=== PATIENT | female | born 1950 | race Caucasian/White ===

== ENCOUNTER → 2017-05-10 | Outpatient (REF) | payer MEDICARE, OTHER ==
[~2017-05-10] MED LIST: ALLO100T PO; ASPI325T24 PO; CALC1CAP31 PO; CALCTAB68 PO; CORE12.5 PO; CYCL10TA PO; CYMB60CA3 PO; FLAG500T PO; HYDR-3363 PO; LIDO5DIS41 TD; LINZ145C PO; MOTR200T44 PO; NEUR300C PO; OMEP40CA2 PO; SENN8.6C PO; SIMV20TA2 PO; SING10TA32 PO; TORS10TA3 PO; VICO5TAB16 PO; VITA200015 PO; XYZA5TAB2 PO; cipro
== END ==
LOC: M LAB REF 12:43
PROVIDERS: ATTEND Internal Medicine Nephrology
DX: N39.0 Urinary tract infection, site not specified (principal)

== ENCOUNTER → 2018-07-29 | Outpatient (CLI) | payer MEDICARE, OTHER, BC | LOC: M SLEEP 20:00 | DX: G47.33 Obstructive sleep apnea (adult) (pediatric) (principal); R40.0 Somnolence | CPT/HCPCS: 95811 ==

== ENCOUNTER → 2020-09-29 | Outpatient (CLI) | payer MEDICARE, OTHER, BC ==
[~2020-09-29] MED LIST changes: +ASPI-255 PO; -ASPI325T24 PO; +CYCL-707 PO; -CYCL10TA PO; -OMEP40CA2 PO; +OMEP40CA97 PO; -SIMV20TA2 PO; +SIMV20TA22 PO; -VICO5TAB16 PO; +VICO5TAB17 PO
== END ==
LOC: M LABSMTC 18:19
PROVIDERS: ATTEND Pediatrics
DX: Z20.828 Contact with and (suspected) exposure to other viral communicable diseases (principal)

== ENCOUNTER → 2021-04-29 | Outpatient (REF) | payer MEDICARE, OTHER, BC ==
[~2021-04-29] MED LIST changes: +OMEP40CA4 PO; -OMEP40CA97 PO
== END ==
LOC: M LAB REF 17:15
PROVIDERS: ATTEND Internal Medicine Nephrology
DX: E83.42 Hypomagnesemia (principal)

== ENCOUNTER 2022-05-29 12:01 | Inpatient (IN) | payer MEDICARE, OTHER, BC ==
[2022-05-29] MEDS: LIDOCAINE 5% (LIDODERM) PATCH TD SCH (09:00)
[~2022-05-29 12:01] MED LIST changes: -CYMB60CA3 PO; +CYMB60CA4 PO
[2022-05-29 12:41] LABS: BASO % 0.3 % (0.0-1.0); EOS # 0.1 10^3/uL (0.0-0.5); EOS % 0.6 % (0.0-3.0); HEMATOCRIT 36.7 % (36.0-47.0); HEMOGLOBIN 11.6 g/dl (12.0-15.5); LYMPH # 1.2 10^3/uL (1.5-5.0); LYMPH % 13.7 % (24.0-44.0); MEAN CORPUSCULAR HEMOGLOBIN 30.5 pg (27.0-33.0); MEAN CORPUSCULAR HGB CONC 31.6 g/dl (32.0-36.5); MEAN CORPUSCULAR VOLUME 96.6 fl (80.0-96.0); MONO # 0.9 10^3/uL (0.0-0.8); MONO % 9.9 % (2.0-8.0); NEUTROPHILS # 6.4 10^3/uL (1.5-8.5); NEUTROPHILS % 74.9 % (36.0-66.0); PLATELET COUNT, AUTOMATED 226 10^3/uL (150-450); WHITE BLOOD COUNT 8.6 10^3/uL (4.0-10.0)
[2022-05-29 13:25] LABS: CK-MB VALUE MASS 1.2 NG/ML (<3.6); MB/CK RELATIVE INDEX 0.87 (< OR =4)
[2022-05-29 13:32] LABS: CALCIUM LEVEL 9.2 MG/DL (8.8-10.2); CREATININE FOR GFR 1.88 MG/DL (0.55-1.30); FREE T4 1.22 NG/DL (0.76-1.46); GLOMERULAR FILTRATION RATE 27.8 (>39); MAGNESIUM LEVEL 2.1 MG/DL (1.8-2.4); POTASSIUM SERUM 4.4 MEQ/L (3.5-5.1); THYROID STIMULATING HORMONE 1.06 uIU/ML (0.358-3.740)
[2022-05-29 14:18] LABS: RSV AMPLIFICATION NEGATIVE (NEGATIVE)
[2022-05-29 15:23] LABS: MB/CK RELATIVE INDEX 0.74 (< OR =4)
[2022-05-29] MEDS ORDERED: SPIR-10 PO (16:43)
[2022-05-29] MEDS ORDERED: ISOS20TA4 PO (16:43)
[2022-05-29] MEDS ORDERED: ECOT81TA5 PO (16:43)
[2022-05-29] MEDS ORDERED: POTA1TAB24 PO (16:43)
[2022-05-29] MEDS ORDERED: CARV25TA PO (16:43)
[2022-05-29] MEDS ORDERED: HYDR-3713 PO (16:43)
[2022-05-29] MEDS ORDERED: AMIT24CA7 PO (16:43)
[2022-05-29] MEDS ORDERED: BUPR75TA5 PO (16:43)
[2022-05-29] MEDS ORDERED: GABA-283 PO (16:43)
[2022-05-29] MEDS ORDERED: LEVOTAB10 PO (16:43)
[2022-05-29] MEDS ORDERED: DOXY75CA3 PO (16:43)
[2022-05-29] MEDS ORDERED: FARX1TAB3 PO (16:43)
[2022-05-29] MEDS ORDERED: ALLO300T2 PO (16:43)
[2022-05-29] MEDS ORDERED: HOME MED LIST COMPLETE! XX SCH (16:45)
[2022-05-29] MEDS ORDERED: NORCO, ANEXSIA 5/325MG TABLET (HYDROcodone/ACETAMINOPHEN) PO PRN (17:35)
[2022-05-29] MEDS ORDERED: ACETAMINOPHEN 325 MG TAB PO PRN (17:55)
[2022-05-29] MEDS: **NOTE PATIENT COMMENT** MISC XX SCH (21:00)
[2022-05-29 22:38] VITALS: BP 165/76
[2022-05-29] MEDS: OMEPRAZOLE 20MG CAP PO SCH (22:47)
[2022-05-29] MEDS: HEPARIN SOD (PORCINE) 5000UNITS/ML 1ML VIAL/SYRINGE SC SCH (22:47)
[2022-05-29] MEDS: POTASSIUM CHLORIDE 10MEQ SR TABLET PO SCH (22:48)
[2022-05-29] MEDS: GABAPENTIN 400MG CAP PO SCH (22:48)
[2022-05-29] MEDS: MONTELUKAST 10 MG TAB PO SCH (22:48)
[2022-05-29] MEDS: SIMVASTATIN 20 MG TAB PO SCH (22:48)
[2022-05-29] MEDS: CYCLOBENZAPRINE 10MG TABLET PO SCH (22:48)
[2022-05-29] MEDS: DULoxetine 30MG CAPSULE (CYMBALTA) PO SCH (22:49)
[2022-05-29] MEDS: ASPIRIN 81MG ENTERIC TABLET PO SCH (22:49)
[2022-05-29] MEDS: CARVedilol 12.5 MG TAB PO SCH (22:49)
[2022-05-29] MEDS: oxyCODONE 5MG TAB PO PRN (22:58)
[2022-05-30] MEDS: buPROPion 75 MG TAB PO SCH ×3 (00:13→21:45)
[2022-05-30] MEDS: DAPAGLIFLOZIN PROPANEDIOL 10MG TABLET (FARXIGA) PO SCH ×2 (00:13→21:44)
[2022-05-30 04:52] VITALS: BP 143/60
[2022-05-30] MEDS: HEPARIN SOD (PORCINE) 5000UNITS/ML 1ML VIAL/SYRINGE SC SCH ×3 (04:58→21:45)
[2022-05-30] MEDS: oxyCODONE 5MG TAB PO PRN ×2 (04:58→11:46)
[2022-05-30] MEDS: ISOSORBIDE DIN. (ISORDIL) 20 MG TAB PO SCH ×3 (06:16→17:50)
[2022-05-30 06:44] LABS: HEMOGLOBIN 10.7 g/dl (12.0-15.5); MEAN CORPUSCULAR HEMOGLOBIN 29.6 pg (27.0-33.0); MEAN CORPUSCULAR HGB CONC 30.6 g/dl (32.0-36.5); PLATELET COUNT, AUTOMATED 187 10^3/uL (150-450); RED BLOOD COUNT 3.61 10^6/uL (4.00-5.40); WHITE BLOOD COUNT 7.5 10^3/uL (4.0-10.0)
[2022-05-30 07:27] LABS: CALCIUM LEVEL 9.1 MG/DL (8.8-10.2); CREATININE FOR GFR 1.6 MG/DL (0.55-1.30); GLOMERULAR FILTRATION RATE 33.5 (>39); POTASSIUM SERUM 4.2 MEQ/L (3.5-5.1)
[2022-05-30] MEDS: CALCITRIOL 0.25 MCG CAP (S0169) PO SCH (09:17)
[2022-05-30] MEDS: GABAPENTIN 400MG CAP PO SCH ×3 (09:17→21:44)
[2022-05-30] MEDS: OMEPRAZOLE 20MG CAP PO SCH ×2 (09:17→21:45)
[2022-05-30] MEDS: TORSEMIDE 10 MG TABLET PO SCH (09:17)
[2022-05-30] MEDS: CYCLOBENZAPRINE 10MG TABLET PO SCH ×3 (09:18→21:45)
[2022-05-30] MEDS: POTASSIUM CHLORIDE 10MEQ SR TABLET PO SCH ×2 (09:18→21:44)
[2022-05-30] MEDS: allopurinoL 300 MG TAB PO SCH (09:18)
[2022-05-30] MEDS: DULoxetine 30MG CAPSULE (CYMBALTA) PO SCH ×2 (09:19→21:45)
[2022-05-30] MEDS: LIDOCAINE 5% (LIDODERM) PATCH TD SCH (09:19)
[2022-05-30] MEDS: CARVedilol 12.5 MG TAB PO SCH ×2 (09:19→21:47)
[2022-05-30] MEDS: SPIRONOLACTONE 12.5MG PER 1/2 TABLET PO SCH (09:23)
[2022-05-30 12:52] VITALS: BP_SYST 113; BP_SYST 143; BP_SYST 146; BP_DIAS 51; BP_DIAS 69; BP_DIAS 70
[2022-05-30 14:00] VITALS: BP 132/65
[2022-05-30] MEDS ORDERED: LR 500 ML IV SCH (14:00)
[2022-05-30 20:19] VITALS: BP 144/68
[2022-05-30] MEDS: SIMVASTATIN 20 MG TAB PO SCH (21:45)
[2022-05-30] MEDS: MONTELUKAST 10 MG TAB PO SCH (21:45)
[2022-05-30] MEDS: ASPIRIN 81MG ENTERIC TABLET PO SCH (21:45)
[2022-05-30] MEDS: **NOTE PATIENT COMMENT** MISC XX SCH (21:50)
[2022-05-31] MEDS: oxyCODONE 5MG TAB PO PRN ×3 (02:39→22:38)
[2022-05-31 06:02] LABS: HEMATOCRIT 34.5 % (36.0-47.0); HEMOGLOBIN 10.6 g/dl (12.0-15.5); MEAN CORPUSCULAR HEMOGLOBIN 29.5 pg (27.0-33.0); MEAN CORPUSCULAR HGB CONC 30.7 g/dl (32.0-36.5); MEAN CORPUSCULAR VOLUME 96.1 fl (80.0-96.0); PLATELET COUNT, AUTOMATED 207 10^3/uL (150-450); RED BLOOD COUNT 3.59 10^6/uL (4.00-5.40); WHITE BLOOD COUNT 8.8 10^3/uL (4.0-10.0)
[2022-05-31] MEDS: HEPARIN SOD (PORCINE) 5000UNITS/ML 1ML VIAL/SYRINGE SC SCH ×3 (06:16→22:37)
[2022-05-31 06:19] VITALS: BP 136/57
[2022-05-31] MEDS: ISOSORBIDE DIN. (ISORDIL) 20 MG TAB PO SCH ×3 (06:19→17:11)
[2022-05-31 06:36] LABS: CALCIUM LEVEL 9.5 MG/DL (8.8-10.2); CREATININE FOR GFR 1.53 MG/DL (0.55-1.30); GLOMERULAR FILTRATION RATE 35.3 (>39); POTASSIUM SERUM 4.2 MEQ/L (3.5-5.1)
[2022-05-31] MEDS: POTASSIUM CHLORIDE 10MEQ SR TABLET PO SCH ×2 (09:09→22:36)
[2022-05-31] MEDS: CARVedilol 12.5 MG TAB PO SCH ×2 (09:09→22:35)
[2022-05-31] MEDS: buPROPion 75 MG TAB PO SCH ×2 (09:09→22:37)
[2022-05-31] MEDS: GABAPENTIN 400MG CAP PO SCH ×3 (09:09→22:36)
[2022-05-31] MEDS: TORSEMIDE 10 MG TABLET PO SCH (09:09)
[2022-05-31] MEDS: CALCITRIOL 0.25 MCG CAP (S0169) PO SCH (09:10)
[2022-05-31] MEDS: CYCLOBENZAPRINE 10MG TABLET PO SCH ×3 (09:10→22:36)
[2022-05-31] MEDS: OMEPRAZOLE 20MG CAP PO SCH ×2 (09:10→22:36)
[2022-05-31] MEDS: DULoxetine 30MG CAPSULE (CYMBALTA) PO SCH ×2 (09:10→22:35)
[2022-05-31] MEDS: SPIRONOLACTONE 12.5MG PER 1/2 TABLET PO SCH (09:10)
[2022-05-31] MEDS: allopurinoL 300 MG TAB PO SCH (09:10)
[2022-05-31] MEDS: LIDOCAINE 5% (LIDODERM) PATCH TD SCH (09:10)
[2022-05-31 14:00] VITALS: BP 122/57
[2022-05-31 20:00] VITALS: BP 142/63
[2022-05-31] MEDS ORDERED: BISACODYL 5 MG TAB PO PRN (22:35)
[2022-05-31] MEDS: ASPIRIN 81MG ENTERIC TABLET PO SCH (22:36)
[2022-05-31] MEDS: DAPAGLIFLOZIN PROPANEDIOL 10MG TABLET (FARXIGA) PO SCH (22:36)
[2022-05-31] MEDS: MONTELUKAST 10 MG TAB PO SCH (22:37)
[2022-05-31] MEDS: SIMVASTATIN 20 MG TAB PO SCH (22:37)
[2022-05-31] MEDS: DOCUSATE SODIUM 100MG CAPSULE PO SCH (22:41)
[2022-05-31] MEDS: **NOTE PATIENT COMMENT** MISC XX SCH (22:50)
[2022-06-01] MEDS: ISOSORBIDE DIN. (ISORDIL) 20 MG TAB PO SCH ×3 (06:08→16:57)
[2022-06-01] MEDS: HEPARIN SOD (PORCINE) 5000UNITS/ML 1ML VIAL/SYRINGE SC SCH ×3 (06:08→21:15)
[2022-06-01] MEDS: oxyCODONE 5MG TAB PO PRN ×3 (06:09→21:16)
[2022-06-01] MEDS: MIRALAX *UNIT DOSE* 17GM PACKET PO SCH (09:52)
[2022-06-01] MEDS: LIDOCAINE 5% (LIDODERM) PATCH TD SCH (09:53)
[2022-06-01] MEDS: OMEPRAZOLE 20MG CAP PO SCH ×2 (09:53→21:15)
[2022-06-01] MEDS: GABAPENTIN 400MG CAP PO SCH ×3 (09:53→21:15)
[2022-06-01] MEDS: buPROPion 75 MG TAB PO SCH ×2 (09:54→21:15)
[2022-06-01] MEDS: DOCUSATE SODIUM 100MG CAPSULE PO SCH ×2 (09:54→21:13)
[2022-06-01] MEDS: CYCLOBENZAPRINE 10MG TABLET PO SCH ×3 (09:54→21:14)
[2022-06-01] MEDS: allopurinoL 300 MG TAB PO SCH (09:54)
[2022-06-01] MEDS: CALCITRIOL 0.25 MCG CAP (S0169) PO SCH (09:54)
[2022-06-01] MEDS: DULoxetine 30MG CAPSULE (CYMBALTA) PO SCH ×2 (09:54→21:14)
[2022-06-01] MEDS: TORSEMIDE 10 MG TABLET PO SCH (09:54)
[2022-06-01] MEDS: POTASSIUM CHLORIDE 10MEQ SR TABLET PO SCH ×2 (09:54→21:15)
[2022-06-01] MEDS: SPIRONOLACTONE 12.5MG PER 1/2 TABLET PO SCH (09:55)
[2022-06-01] MEDS: CARVedilol 12.5 MG TAB PO SCH ×2 (09:58→21:14)
[2022-06-01 10:00] VITALS: BP 128/60
[2022-06-01 14:00] VITALS: BP 122/60
[2022-06-01 20:59] VITALS: BP 124/62
[2022-06-01] MEDS: ASPIRIN 81MG ENTERIC TABLET PO SCH (21:14)
[2022-06-01] MEDS: DAPAGLIFLOZIN PROPANEDIOL 10MG TABLET (FARXIGA) PO SCH (21:14)
[2022-06-01] MEDS: SIMVASTATIN 20 MG TAB PO SCH (21:15)
[2022-06-01] MEDS: MONTELUKAST 10 MG TAB PO SCH (21:15)
[2022-06-01] MEDS: **NOTE PATIENT COMMENT** MISC XX SCH (21:15)
[2022-06-01] MEDS: CEPACOL LOZENGE PO PRN (22:23)
[2022-06-02 06:00] VITALS: BP 115/48
[2022-06-02 06:06] LABS: HEMATOCRIT 32.5 % (36.0-47.0); HEMOGLOBIN 10.1 g/dl (12.0-15.5); MEAN CORPUSCULAR HEMOGLOBIN 30.4 pg (27.0-33.0); MEAN CORPUSCULAR HGB CONC 31.1 g/dl (32.0-36.5); MEAN CORPUSCULAR VOLUME 97.9 fl (80.0-96.0); PLATELET COUNT, AUTOMATED 201 10^3/uL (150-450); RED BLOOD COUNT 3.32 10^6/uL (4.00-5.40); WHITE BLOOD COUNT 8.8 10^3/uL (4.0-10.0)
[2022-06-02] MEDS: HEPARIN SOD (PORCINE) 5000UNITS/ML 1ML VIAL/SYRINGE SC SCH ×3 (06:19→21:20)
[2022-06-02] MEDS: ISOSORBIDE DIN. (ISORDIL) 20 MG TAB PO SCH ×3 (06:19→18:01)
[2022-06-02] MEDS: oxyCODONE 5MG TAB PO PRN ×3 (06:20→21:22)
[2022-06-02 06:51] LABS: CALCIUM LEVEL 9.5 MG/DL (8.8-10.2); CREATININE FOR GFR 1.63 MG/DL (0.55-1.30); GLOMERULAR FILTRATION RATE 32.8 (>39); POTASSIUM SERUM 4.5 MEQ/L (3.5-5.1)
[2022-06-02] MEDS: DOCUSATE SODIUM 100MG CAPSULE PO SCH ×2 (09:32→21:18)
[2022-06-02] MEDS: OMEPRAZOLE 20MG CAP PO SCH ×2 (09:32→21:19)
[2022-06-02] MEDS: MIRALAX *UNIT DOSE* 17GM PACKET PO SCH (09:32)
[2022-06-02] MEDS: GABAPENTIN 400MG CAP PO SCH ×3 (09:32→21:19)
[2022-06-02] MEDS: DULoxetine 30MG CAPSULE (CYMBALTA) PO SCH ×2 (09:33→21:18)
[2022-06-02] MEDS: TORSEMIDE 10 MG TABLET PO SCH (09:33)
[2022-06-02] MEDS: buPROPion 75 MG TAB PO SCH ×2 (09:33→21:19)
[2022-06-02] MEDS: POTASSIUM CHLORIDE 10MEQ SR TABLET PO SCH ×2 (09:33→21:19)
[2022-06-02] MEDS: CALCITRIOL 0.25 MCG CAP (S0169) PO SCH (09:33)
[2022-06-02] MEDS: CYCLOBENZAPRINE 10MG TABLET PO SCH ×3 (09:33→21:19)
[2022-06-02] MEDS: allopurinoL 300 MG TAB PO SCH (09:34)
[2022-06-02] MEDS: CARVedilol 12.5 MG TAB PO SCH ×2 (09:35→21:18)
[2022-06-02] MEDS: LIDOCAINE 5% (LIDODERM) PATCH TD SCH (09:35)
[2022-06-02] MEDS: SPIRONOLACTONE 12.5MG PER 1/2 TABLET PO SCH (09:39)
[2022-06-02 14:00] VITALS: BP 103/57
[2022-06-02 21:00] VITALS: BP 136/66
[2022-06-02] MEDS: **NOTE PATIENT COMMENT** MISC XX SCH (21:00)
[2022-06-02] MEDS ORDERED: BISACODYL 5 MG TAB PO PRN (21:10)
[2022-06-02] MEDS ORDERED: MOM 30ML SUSPENSION UDC PO PRN (21:15)
[2022-06-02] MEDS: DAPAGLIFLOZIN PROPANEDIOL 10MG TABLET (FARXIGA) PO SCH (21:18)
[2022-06-02] MEDS: ASPIRIN 81MG ENTERIC TABLET PO SCH (21:18)
[2022-06-02] MEDS: SIMVASTATIN 20 MG TAB PO SCH (21:19)
[2022-06-02] MEDS: MONTELUKAST 10 MG TAB PO SCH (21:19)
[2022-06-02] MEDS: CEPACOL LOZENGE PO PRN (21:20)
[2022-06-03 05:38] VITALS: BP 149/69
[2022-06-03 05:59] LABS: HEMATOCRIT 33.9 % (36.0-47.0); HEMOGLOBIN 10.4 g/dl (12.0-15.5); MEAN CORPUSCULAR HEMOGLOBIN 29.6 pg (27.0-33.0); MEAN CORPUSCULAR HGB CONC 30.7 g/dl (32.0-36.5); MEAN CORPUSCULAR VOLUME 96.6 fl (80.0-96.0); PLATELET COUNT, AUTOMATED 218 10^3/uL (150-450); RED BLOOD COUNT 3.51 10^6/uL (4.00-5.40); WHITE BLOOD COUNT 8.9 10^3/uL (4.0-10.0)
[2022-06-03] MEDS: HEPARIN SOD (PORCINE) 5000UNITS/ML 1ML VIAL/SYRINGE SC SCH (06:17)
[2022-06-03] MEDS: ISOSORBIDE DIN. (ISORDIL) 20 MG TAB PO SCH ×2 (06:17→12:37)
[2022-06-03 06:26] LABS: HEMOGLOBIN A1c 5.8 %
[2022-06-03 06:31] LABS: CALCIUM LEVEL 9.7 MG/DL (8.8-10.2); CREATININE FOR GFR 1.77 MG/DL (0.55-1.30); GLOMERULAR FILTRATION RATE 29.9 (>39); POTASSIUM SERUM 4.7 MEQ/L (3.5-5.1); URIC ACID 3.4 MG/DL (2.6-6.0)
[2022-06-03] MEDS ORDERED: COLA100C5 PO (08:48)
[2022-06-03] MEDS ORDERED: MIRA1POW3 PO (08:48)
[2022-06-03] MEDS ORDERED: HYDR-3713 PO ×2 (08:48)
[2022-06-03] MEDS: MIRALAX *UNIT DOSE* 17GM PACKET PO SCH (08:53)
[2022-06-03] MEDS: TORSEMIDE 10 MG TABLET PO SCH (08:54)
[2022-06-03] MEDS: CALCITRIOL 0.25 MCG CAP (S0169) PO SCH (08:54)
[2022-06-03] MEDS: DULoxetine 30MG CAPSULE (CYMBALTA) PO SCH (08:54)
[2022-06-03] MEDS: DOCUSATE SODIUM 100MG CAPSULE PO SCH (08:54)
[2022-06-03] MEDS: GABAPENTIN 400MG CAP PO SCH (08:54)
[2022-06-03] MEDS: SPIRONOLACTONE 12.5MG PER 1/2 TABLET PO SCH (08:55)
[2022-06-03] MEDS: allopurinoL 300 MG TAB PO SCH (08:55)
[2022-06-03] MEDS: OMEPRAZOLE 20MG CAP PO SCH (08:55)
[2022-06-03] MEDS: CARVedilol 12.5 MG TAB PO SCH (08:55)
[2022-06-03] MEDS: LIDOCAINE 5% (LIDODERM) PATCH TD SCH (08:55)
[2022-06-03] MEDS: POTASSIUM CHLORIDE 10MEQ SR TABLET PO SCH (08:55)
[2022-06-03] MEDS: CYCLOBENZAPRINE 10MG TABLET PO SCH (08:55)
[2022-06-03] MEDS: buPROPion 75 MG TAB PO SCH (08:55)
[2022-06-03 12:37] VITALS: BP 143/68
== END 2022-06-03 13:44 | disposition home or self-care (01) | DRG 563 ==
LOC: M ED 12:01 → EDBD 12:01 → M ED INP 17:31 → ENRESERV 20:07 → M MSPAV 22:31 → OBSVTOIN 06-01 12:48
PROVIDERS: ADMIT Student in an Organized Health Care Education/Training Program; ATTEND Internal Medicine
DX: S82.402A Unspecified fracture of shaft of left fibula, initial encounter for closed fracture (principal); I50.22 Chronic systolic (congestive) heart failure; I13.0 Hypertensive heart and chronic kidney disease with heart failure and stage 1 through stage 4 chronic kidney disease, or unspecified chronic kidney disease; N18.4 Chronic kidney disease, stage 4 (severe); S82.202A Unspecified fracture of shaft of left tibia, initial encounter for closed fracture; D64.9 Anemia, unspecified; E78.5 Hyperlipidemia, unspecified; K21.9 Gastro-esophageal reflux disease without esophagitis; Z95.810 Presence of automatic (implantable) cardiac defibrillator; E55.9 Vitamin D deficiency, unspecified; G47.33 Obstructive sleep apnea (adult) (pediatric); M10.9 Gout, unspecified; F32.A Depression, unspecified; Z79.82 Long term (current) use of aspirin; Z79.899 Other long term (current) drug therapy; Z88.8 Allergy status to other drugs, medicaments and biological substances; W18.30XA Fall on same level, unspecified, initial encounter; Y92.009 Unspecified place in unspecified non-institutional (private) residence as the place of occurrence of the external cause

== ENCOUNTER → 2022-06-14 | Outpatient (CLI) | payer MEDICARE, OTHER, BC ==
[~2022-06-14] MED LIST changes: +ALLO300T2 PO; +AMIT24CA7 PO; +BUPR75TA5 PO; +CARV25TA PO; +COLA100C5 PO; +DOXY75CA3 PO; +ECOT81TA5 PO; +FARX1TAB3 PO; +GABA-283 PO; +HYDR-3713 PO; +ISOS20TA4 PO; +LEVOTAB10 PO; +MIRA1POW3 PO; +POTA1TAB24 PO; +SPIR-10 PO
== END ==
LOC: M SOG 08:52
PROVIDERS: ATTEND Orthopaedic Surgery
DX: S82.402D Unspecified fracture of shaft of left fibula, subsequent encounter for closed fracture with routine healing (principal); S82.202D Unspecified fracture of shaft of left tibia, subsequent encounter for closed fracture with routine healing

== ENCOUNTER → 2022-06-29 | Outpatient (CLI) | payer MEDICARE, OTHER, BC | LOC: M SOG 08:09 | PROVIDERS: ATTEND Orthopaedic Surgery | DX: S82.302D Unspecified fracture of lower end of left tibia, subsequent encounter for closed fracture with routine healing (principal); S82.62XD Displaced fracture of lateral malleolus of left fibula, subsequent encounter for closed fracture with routine healing ==

== ENCOUNTER → 2022-07-16 | Outpatient (CLI) | payer MEDICARE, OTHER, BC | LOC: M SOG 08:07 | PROVIDERS: ATTEND Orthopaedic Surgery | DX: S82.852D Displaced trimalleolar fracture of left lower leg, subsequent encounter for closed fracture with routine healing (principal) ==

== ENCOUNTER → 2022-07-30 | Outpatient (CLI) | payer MEDICARE, OTHER, BC | LOC: M SOG 08:05 | PROVIDERS: ATTEND Orthopaedic Surgery | DX: M25.572 Pain in left ankle and joints of left foot (principal) ==

== ENCOUNTER → 2022-09-07 | Outpatient (CLI) | payer MEDICARE, OTHER | LOC: M PAIN 13:00 | PROVIDERS: ATTEND Nurse Practitioner Family | DX: M54.50 Low back pain, unspecified (principal); S82.852D Displaced trimalleolar fracture of left lower leg, subsequent encounter for closed fracture with routine healing; M46.1 Sacroiliitis, not elsewhere classified; G89.29 Other chronic pain; Z95.0 Presence of cardiac pacemaker; Z86.59 Personal history of other mental and behavioral disorders; Z79.82 Long term (current) use of aspirin; Z79.899 Other long term (current) drug therapy | CPT/HCPCS: 73610; G0463 ==

== ENCOUNTER → 2022-09-07 | Outpatient (CLI) | payer MEDICARE, OTHER, BC | LOC: M SOG 08:02 | PROVIDERS: ATTEND Orthopaedic Surgery | DX: S82.852D Displaced trimalleolar fracture of left lower leg, subsequent encounter for closed fracture with routine healing (principal) ==

== ENCOUNTER → 2022-11-22 | Outpatient (CLI) | payer MEDICARE, OTHER | LOC: M PAIN 10:30 | PROVIDERS: ATTEND Nurse Practitioner Family | DX: M54.50 Low back pain, unspecified (principal); M46.1 Sacroiliitis, not elsewhere classified; G89.29 Other chronic pain; Z95.0 Presence of cardiac pacemaker; Z86.59 Personal history of other mental and behavioral disorders; Z79.82 Long term (current) use of aspirin; Z79.890 Hormone replacement therapy ==

== ENCOUNTER → 2022-12-28 | Outpatient (CLI) | payer MEDICARE, OTHER, BC ==
[~2022-12-28] MED LIST changes: +MONT-5 PO; +PROL60SO SC; -SING10TA32 PO
== END ==
LOC: M ONCR 14:32
PROVIDERS: ATTEND General Practice
DX: C50.111 Malignant neoplasm of central portion of right female breast (principal); E55.9 Vitamin D deficiency, unspecified; G47.33 Obstructive sleep apnea (adult) (pediatric); I27.20 Pulmonary hypertension, unspecified; I51.9 Heart disease, unspecified; J45.909 Unspecified asthma, uncomplicated; K21.9 Gastro-esophageal reflux disease without esophagitis; K58.9 Irritable bowel syndrome, unspecified; M10.9 Gout, unspecified; N19 Unspecified kidney failure; R29.6 Repeated falls; Z79.84 Long term (current) use of oral hypoglycemic drugs; Z79.899 Other long term (current) drug therapy; Z88.1 Allergy status to other antibiotic agents; Z90.11 Acquired absence of right breast and nipple; Z92.3 Personal history of irradiation

== ENCOUNTER → 2023-02-15 | Outpatient (CLI) | payer MEDICARE, OTHER ==
[~2023-02-15] MED LIST changes: +ATIV1TAB7 PO; +FERR325T3 PO; +LETR2.5T2 PO; +VERZ150T PO
== END ==
LOC: M PAIN 10:30
PROVIDERS: ATTEND Nurse Practitioner Family
DX: M54.6 Pain in thoracic spine (principal); M79.10 Myalgia, unspecified site; G89.29 Other chronic pain; Z95.0 Presence of cardiac pacemaker; Z86.59 Personal history of other mental and behavioral disorders; Z79.82 Long term (current) use of aspirin; Z79.899 Other long term (current) drug therapy

== ENCOUNTER 2023-02-18 11:15 | Outpatient (RCR) | payer MEDICARE, OTHER, BC ==
[2023-02-22] MEDS ORDERED: VERZ150T PO (10:56)
[2023-03-07] MEDS ORDERED: VERZ150T PO (15:48)
== END 2023-02-20 ==
LOC: M ONCR 11:15
PROVIDERS: ATTEND General Practice
DX: C50.111 Malignant neoplasm of central portion of right female breast (principal)

== ENCOUNTER → 2023-02-21 | Outpatient (CLI) | payer MEDICARE, OTHER, BC | LOC: M PLARAD 08:08 | PROVIDERS: ATTEND Internal Medicine Hematology & Oncology | DX: C50.811 Malignant neoplasm of overlapping sites of right female breast (principal) | CPT/HCPCS: 78815; A9552 ==

== ENCOUNTER → 2023-03-23 | Outpatient (RCR) | payer MEDICARE, OTHER, BC | LOC: M ONCR 02-21 10:04 | PROVIDERS: ATTEND General Practice | DX: C50.111 Malignant neoplasm of central portion of right female breast (principal) ==

== ENCOUNTER 2023-03-29 10:36 | Outpatient (RCR) | payer MEDICARE, OTHER, BC ==
[2023-04-19] MEDS ORDERED: VERZ150T PO (09:31)
== END 2023-04-22 ==
LOC: M ONCR 10:36
PROVIDERS: ATTEND General Practice
DX: C50.111 Malignant neoplasm of central portion of right female breast (principal)

== ENCOUNTER → 2023-09-28 | Outpatient (CLI) | payer MEDICARE, OTHER, BC ==
[~2023-09-28] MED LIST changes: +AMBI5TAB PO; +CARV12.5 PO; +CORE25TA PO; +FEMA2.5T4 PO; +FOLI1TAB11 PO; -GABA-283 PO; +GABA-284 PO; +MAGN400T2 PO; +SIMV-253 PO; +TORS5TAB2 PO; +VERZ100T PO; +xyzal PO
== END ==
LOC: M ONCR 11:17
PROVIDERS: ATTEND General Practice
DX: C50.111 Malignant neoplasm of central portion of right female breast (principal); Z71.2 Person consulting for explanation of examination or test findings; Z79.2 Long term (current) use of antibiotics; Z79.82 Long term (current) use of aspirin; Z79.84 Long term (current) use of oral hypoglycemic drugs; Z79.811 Long term (current) use of aromatase inhibitors; Z79.899 Other long term (current) drug therapy; Z88.1 Allergy status to other antibiotic agents; Z90.11 Acquired absence of right breast and nipple; Z92.3 Personal history of irradiation

== ENCOUNTER → 2023-10-28 | Outpatient (CLI) | payer MEDICARE, OTHER, BC ==
[~2023-10-28] MED LIST changes: +ELIQ2.5T PO
== END ==
LOC: M RAD 11:33
PROVIDERS: ATTEND Specialist
DX: C50.919 Malignant neoplasm of unspecified site of unspecified female breast (principal); M79.621 Pain in right upper arm

== ENCOUNTER → 2024-03-28 | Outpatient (CLI) | payer MEDICARE, OTHER, BC ==
[~2024-03-28] MED LIST changes: +EXEM25TA; +EXEM25TA PO; +GABA600T4; -MIRA1POW3 PO; +MIRA33506 PO; +OMEP40CA5; +TRAZ1TAB14
== END ==
LOC: M RAD 12:15
PROVIDERS: ATTEND Internal Medicine Medical Oncology
DX: R22.31 Localized swelling, mass and lump, right upper limb (principal); C50.919 Malignant neoplasm of unspecified site of unspecified female breast

== ENCOUNTER → 2024-03-29 | Outpatient (CLI) | payer MEDICARE, OTHER, BC | LOC: M ONCR 13:10 | PROVIDERS: ATTEND General Practice | DX: Z08 Encounter for follow-up examination after completed treatment for malignant neoplasm (principal); Z85.3 Personal history of malignant neoplasm of breast; E86.0 Dehydration; D64.9 Anemia, unspecified; I89.0 Lymphedema, not elsewhere classified; I95.1 Orthostatic hypotension; Z71.2 Person consulting for explanation of examination or test findings; Z90.11 Acquired absence of right breast and nipple; Z92.3 Personal history of irradiation; Z79.811 Long term (current) use of aromatase inhibitors; Z88.1 Allergy status to other antibiotic agents; Z79.01 Long term (current) use of anticoagulants; Z79.82 Long term (current) use of aspirin; Z79.899 Other long term (current) drug therapy ==

== ENCOUNTER → 2024-04-09 | Outpatient (CLI) | payer MEDICARE, OTHER, BC | LOC: M PLARAD 13:58 | PROVIDERS: ATTEND Internal Medicine Medical Oncology | DX: C50.811 Malignant neoplasm of overlapping sites of right female breast (principal) | CPT/HCPCS: 78815; A9552 ==

== ENCOUNTER → 2024-05-07 | Outpatient (CLI) | payer MEDICARE, OTHER, BC ==
[~2024-05-07] MED LIST changes: +FURO20TA2 PO; -GABA600T4; +GABA600T4 PO; -OMEP40CA5; +OMEP40CA5 PO; +TOPR50TA PO; +TRAZ-257 PO; +TRAZ1TAB11 PO; +ZOLP5TAB; +ZOLP5TAB PO
== END ==
LOC: M SOG 07:51
PROVIDERS: ATTEND Orthopaedic Surgery
DX: M25.551 Pain in right hip (principal)

== ENCOUNTER → 2024-05-14 | Outpatient (REF) | payer MEDICARE, OTHER, BC ==
[2024-05-14 12:14] LABS: BASO # 0.1 10^3/uL (0.0-0.2); BASO % 1.8 % (0.0-1.0); EOS # 0.1 10^3/uL (0.0-0.5); EOS % 1.8 % (0.0-3.0); HEMATOCRIT 33.7 % (36.0-47.0); HEMOGLOBIN 10.9 g/dl (12.0-15.5); LYMPH # 0.8 10^3/uL (1.5-5.0); LYMPH % 23.3 % (24.0-44.0); MEAN CORPUSCULAR HEMOGLOBIN 38.1 pg (27.0-33.0); MEAN CORPUSCULAR HGB CONC 32.3 g/dl (32.0-36.5); MONO # 0.3 10^3/uL (0.0-0.8); MONO % 7.8 % (2.0-8.0); NEUTROPHILS # 2.2 10^3/uL (1.5-8.5); NEUTROPHILS % 64.7 % (36.0-66.0); PLATELET COUNT, AUTOMATED 150 10^3/uL (150-450); RED BLOOD COUNT 2.86 10^6/uL (4.00-5.40); WHITE BLOOD COUNT 3.4 10^3/uL (4.0-10.0)
[2024-05-14 12:17] LABS: MEAN CORPUSCULAR VOLUME 117.8 fl (80.0-96.0)
[2024-05-14 14:11] LABS: HEMOGLOBIN A1c 5.3 % (4.0-6.0)
[2024-05-14 14:32] LABS: BILIRUBIN,TOTAL 0.5 MG/DL (0.3-1.2); CALCIUM LEVEL 9.5 MG/DL (8.3-10.6); CREATININE FOR GFR 1.58 MG/DL (0.55-1.30); GLOMERULAR FILTRATION RATE 33.9 (>39); MAGNESIUM LEVEL 1.9 MG/DL (1.8-2.4); PERCENT SATURATION 35.5 % (13.2-45.0); POTASSIUM SERUM 5.2 MMOL/L (3.5-5.1); TOTAL PROTEIN 5.8 G/DL (5.7-8.2)
[2024-05-14 14:34] LABS: FERRITIN 33.9 NG/ML (7.3-270.7); FREE T4 0.89 NG/DL (0.89-1.76); THYROID STIMULATING HORMONE 0.933 uIU/ML (0.55-4.78)
[2024-05-15 10:11] LABS: TRANSFERRIN 228 mg/dL (188-341)
[2024-05-18 00:43] LABS: NT PRO BNP SO 9748 pg/mL (<450)
== END ==
LOC: M LAB REF 11:34
PROVIDERS: ATTEND Internal Medicine Advanced Heart Failure and Transplant Cardiology
DX: I42.0 Dilated cardiomyopathy (principal); R53.83 Other fatigue; I42.8 Other cardiomyopathies

== ENCOUNTER 2024-06-04 08:53 | Outpatient (RCR) | payer MEDICARE, OTHER, BC ==
[2022-12-22 10:50] VITALS: BP 122/66; O2SAT 99
[2022-12-22 12:18] LABS: BASO % 0.4 % (0.0-1.0); EOS # 0.1 10^3/uL (0.0-0.5); HEMATOCRIT 38.2 % (36.0-47.0); HEMOGLOBIN 11.4 g/dl (12.0-15.5); LYMPH # 2.2 10^3/uL (1.5-5.0); LYMPH % 22.8 % (24.0-44.0); MEAN CORPUSCULAR HEMOGLOBIN 27.9 pg (27.0-33.0); MEAN CORPUSCULAR HGB CONC 29.8 g/dl (32.0-36.5); MEAN CORPUSCULAR VOLUME 93.6 fl (80.0-96.0); MONO # 0.7 10^3/uL (0.0-0.8); MONO % 7.2 % (2.0-8.0); NEUTROPHILS # 6.4 10^3/uL (1.5-8.5); NEUTROPHILS % 67.9 % (36.0-66.0); PLATELET COUNT, AUTOMATED 372 10^3/uL (150-450); RED BLOOD COUNT 4.08 10^6/uL (4.00-5.40); WHITE BLOOD COUNT 9.4 10^3/uL (4.0-10.0)
[2022-12-22 12:43] LABS: LDH LACTATE DEHYDROGENASE 237 U/L (120-246)
[2022-12-22 12:44] LABS: ALBUMIN 3.3 G/DL (3.2-5.2); ALKALINE PHOSPHATASE 69 U/L (46-116); ALT/SGPT 12 U/L (7.0-40); AST/SGOT 19 U/L (<34); BILIRUBIN,TOTAL 0.4 MG/DL (0.3-1.2); BLOOD UREA NITROGEN 32 MG/DL (9-23); CALCIUM LEVEL 9.7 MG/DL (8.3-10.6); CARBON DIOXIDE LEVEL 30 MMOL/L (20-31); CHLORIDE LEVEL 103 MMOL/L (98-107); CREATININE FOR GFR 1.84 MG/DL (0.55-1.30); GLOMERULAR FILTRATION RATE 28.5 (>39); GLUCOSE, FASTING 112 MG/DL (74-106); IRON (FE) 32 UG/DL (50-170); POTASSIUM SERUM 4.4 MMOL/L (3.5-5.1); SODIUM LEVEL 140 MMOL/L (136-145); TOTAL PROTEIN 6.7 G/DL (5.7-8.2)
[2022-12-22 12:45] LABS: FERRITIN 12.7 NG/ML (7.3-270.7); FREE T3 3.5 PG/ML (2.3-4.2); FREE T4 1.16 NG/DL (0.89-1.76); PERCENT SATURATION 9.7 % (13.2-45.0); THYROID STIMULATING HORMONE 0.549 uIU/ML (0.55-4.78); TOTAL IRON BINDING CAPACITY 329 UG/DL (250-425)
[2022-12-22 12:46] LABS: FOLATE > 24.0 NG/ML (>5.4); VITAMIN B12 LEVEL 372 PG/ML (211-911)
[2022-12-22 12:53] LABS: APPEARANCE, URINE CLEAR (CLEAR); BACTERIA, URINE AUTO NEGATIVE (NEGATIVE); BILIRUBIN, URINE AUTO NEGATIVE (NEGATIVE); BLOOD, URINE BLOOD NEGATIVE (NEGATIVE); COLOR, URINE YELLOW (YELLOW); GLUCOSE, URINE (UA) AUTO 1+ mg/dL (NEGATIVE); KETONE, URINE AUTO TRACE mg/dL (NEGATIVE); LEUKOCYTE ESTERASE, URINE AUTO NEGATIVE (NEGATIVE); MUCUS, URINE SMALL (NEGATIVE); NITRITE, URINE AUTO NEGATIVE (NEGATIVE); PROTEIN, URINE AUTO NEGATIVE (NEGATIVE); RBC, URINE AUTO 0 /HPF (0-3); SPECIFIC GRAVITY URINE AUTO 1.015 (1.002-1.035); SQUAMOUS EPITHELIAL CELL UR AU 0 /HPF (0-6); UROBILINOGEN, URINE AUTO 0.2 mg/dL (0.0-2.0); WBC, URINE AUTO 0 /HPF (0-3)
[2022-12-22 13:24] LABS: CA15-3 ANTIGEN 38.8 U/ML (<32.4)
[2022-12-31 09:50] VITALS: BP 119/64; O2SAT 98
[2023-01-18 10:07] VITALS: BP 136/79; O2SAT 97
[2023-02-16 08:39] VITALS: BP 117/63; O2SAT 98
[2023-02-28 14:17] VITALS: BP 126/72; O2SAT 98
[2023-04-13 11:32] VITALS: O2SAT 99
[2023-04-13 11:41] VITALS: BP 88/58
[2023-04-13 11:53] LABS: BASO % 0.6 % (0.0-1.0); EOS # 0.1 10^3/uL (0.0-0.5); EOS % 1.7 % (0.0-3.0); HEMATOCRIT 38.8 % (36.0-47.0); HEMOGLOBIN 11.2 g/dl (12.0-15.5); LYMPH # 0.5 10^3/uL (1.5-5.0); MEAN CORPUSCULAR HEMOGLOBIN 27.2 pg (27.0-33.0); MEAN CORPUSCULAR HGB CONC 28.9 g/dl (32.0-36.5); MEAN CORPUSCULAR VOLUME 94.2 fl (80.0-96.0); MONO # 0.1 10^3/uL (0.0-0.8); MONO % 1.7 % (2.0-8.0); NEUTROPHILS # 4.5 10^3/uL (1.5-8.5); NEUTROPHILS % 84.3 % (36.0-66.0); PLATELET COUNT, AUTOMATED 234 10^3/uL (150-450); RED BLOOD COUNT 4.12 10^6/uL (4.00-5.40); WHITE BLOOD COUNT 5.3 10^3/uL (4.0-10.0)
[2023-04-13 12:17] LABS: BILIRUBIN,TOTAL 0.5 MG/DL (0.3-1.2); CREATININE FOR GFR 1.73 MG/DL (0.55-1.30); GLOMERULAR FILTRATION RATE 30.6 (>39); PERCENT SATURATION 34.5 % (13.2-45.0); POTASSIUM SERUM 5.1 MMOL/L (3.5-5.1); TOTAL PROTEIN 6.1 G/DL (5.7-8.2)
[2023-04-13 12:19] LABS: FERRITIN 28.1 NG/ML (7.3-270.7)
[2023-04-29 08:44] VITALS: BP 95/57; O2SAT 99
[2023-04-29 08:53] LABS: BASO % 1.1 % (0.0-1.0); EOS # 0.1 10^3/uL (0.0-0.5); EOS % 2.6 % (0.0-3.0); HEMATOCRIT 33.4 % (36.0-47.0); LYMPH # 0.7 10^3/uL (1.5-5.0); MEAN CORPUSCULAR HEMOGLOBIN 28.2 pg (27.0-33.0); MEAN CORPUSCULAR HGB CONC 29.9 g/dl (32.0-36.5); MEAN CORPUSCULAR VOLUME 94.1 fl (80.0-96.0); MONO # 0.3 10^3/uL (0.0-0.8); MONO % 10.8 % (2.0-8.0); NEUTROPHILS # 1.6 10^3/uL (1.5-8.5); NEUTROPHILS % 60.1 % (36.0-66.0); PLATELET COUNT, AUTOMATED 139 10^3/uL (150-450); RED BLOOD COUNT 3.55 10^6/uL (4.00-5.40); WHITE BLOOD COUNT 2.7 10^3/uL (4.0-10.0)
[2023-04-29 09:28] LABS: ALBUMIN 2.9 G/DL (3.2-5.2); BILIRUBIN,TOTAL 0.3 MG/DL (0.3-1.2); CALCIUM LEVEL 8.8 MG/DL (8.3-10.6); CREATININE FOR GFR 1.48 MG/DL (0.55-1.30); GLOMERULAR FILTRATION RATE 36.6 (>39); POTASSIUM SERUM 3.8 MMOL/L (3.5-5.1); TOTAL PROTEIN 5.7 G/DL (5.7-8.2)
[2023-05-17 15:39] VITALS: BP 125/67; O2SAT 100
[2023-05-17 16:15] LABS: BASO # 0.1 10^3/uL (0.0-0.2); EOS # 0.2 10^3/uL (0.0-0.5); EOS % 2.4 % (0.0-3.0); HEMATOCRIT 35.5 % (36.0-47.0); HEMOGLOBIN 10.7 g/dl (12.0-15.5); LYMPH # 0.9 10^3/uL (1.5-5.0); LYMPH % 13.8 % (24.0-44.0); MEAN CORPUSCULAR HEMOGLOBIN 29.2 pg (27.0-33.0); MEAN CORPUSCULAR HGB CONC 30.1 g/dl (32.0-36.5); MONO # 0.3 10^3/uL (0.0-0.8); MONO % 5.2 % (2.0-8.0); NEUTROPHILS # 4.8 10^3/uL (1.5-8.5); NEUTROPHILS % 77.1 % (36.0-66.0); PLATELET COUNT, AUTOMATED 261 10^3/uL (150-450); RED BLOOD COUNT 3.66 10^6/uL (4.00-5.40); WHITE BLOOD COUNT 6.2 10^3/uL (4.0-10.0)
[2023-05-17 16:21] LABS: ALBUMIN 3.1 G/DL (3.2-5.2); BILIRUBIN,TOTAL 0.4 MG/DL (0.3-1.2); CALCIUM LEVEL 9.3 MG/DL (8.3-10.6); CREATININE FOR GFR 1.99 MG/DL (0.55-1.30); POTASSIUM SERUM 4.9 MMOL/L (3.5-5.1); TOTAL PROTEIN 6.3 G/DL (5.7-8.2)
[2023-06-14 13:00] VITALS: BP 99/76; O2SAT 98
[2023-06-14 13:16] LABS: BASO % 0.8 % (0.0-1.0); EOS # 0.1 10^3/uL (0.0-0.5); EOS % 1.6 % (0.0-3.0); HEMATOCRIT 36.1 % (36.0-47.0); HEMOGLOBIN 11.3 g/dl (12.0-15.5); LYMPH # 0.9 10^3/uL (1.5-5.0); LYMPH % 23.2 % (24.0-44.0); MEAN CORPUSCULAR HEMOGLOBIN 31.4 pg (27.0-33.0); MEAN CORPUSCULAR HGB CONC 31.3 g/dl (32.0-36.5); MEAN CORPUSCULAR VOLUME 100.3 fl (80.0-96.0); MONO # 0.2 10^3/uL (0.0-0.8); NEUTROPHILS # 2.5 10^3/uL (1.5-8.5); NEUTROPHILS % 67.6 % (36.0-66.0); PLATELET COUNT, AUTOMATED 151 10^3/uL (150-450); WHITE BLOOD COUNT 3.7 10^3/uL (4.0-10.0)
[2023-06-14 13:39] LABS: ALBUMIN 3.1 G/DL (3.2-5.2); BILIRUBIN,TOTAL 0.4 MG/DL (0.3-1.2); CALCIUM LEVEL 10.6 MG/DL (8.3-10.6); CREATININE FOR GFR 1.83 MG/DL (0.55-1.30); GLOMERULAR FILTRATION RATE 28.6 (>39); POTASSIUM SERUM 4.6 MMOL/L (3.5-5.1); TOTAL PROTEIN 6.4 G/DL (5.7-8.2)
[2023-07-14 10:57] LABS: BASO # 0.1 10^3/uL (0.0-0.2); BASO % 1.3 % (0.0-1.0); EOS # 0.1 10^3/uL (0.0-0.5); EOS % 1.5 % (0.0-3.0); HEMATOCRIT 34.3 % (36.0-47.0); HEMOGLOBIN 10.9 g/dl (12.0-15.5); LYMPH # 0.8 10^3/uL (1.5-5.0); LYMPH % 20.8 % (24.0-44.0); MEAN CORPUSCULAR HEMOGLOBIN 33.7 pg (27.0-33.0); MEAN CORPUSCULAR HGB CONC 31.8 g/dl (32.0-36.5); MEAN CORPUSCULAR VOLUME 106.2 fl (80.0-96.0); MONO # 0.3 10^3/uL (0.0-0.8); MONO % 8.7 % (2.0-8.0); NEUTROPHILS # 2.6 10^3/uL (1.5-8.5); NEUTROPHILS % 67.2 % (36.0-66.0); PLATELET COUNT, AUTOMATED 200 10^3/uL (150-450); RED BLOOD COUNT 3.23 10^6/uL (4.00-5.40); WHITE BLOOD COUNT 3.9 10^3/uL (4.0-10.0)
[2023-07-14 11:22] LABS: BILIRUBIN,TOTAL 0.4 MG/DL (0.3-1.2); CALCIUM LEVEL 9.8 MG/DL (8.3-10.6); CREATININE FOR GFR 1.25 MG/DL (0.55-1.30); GLOMERULAR FILTRATION RATE 44.5 (>39); MAGNESIUM LEVEL 1.6 MG/DL (1.8-2.4); POTASSIUM SERUM 4.1 MMOL/L (3.5-5.1); TOTAL PROTEIN 5.9 G/DL (5.7-8.2)
[2023-07-14 11:25] VITALS: BP 111/60; O2SAT 100
[2023-09-12 10:13] LABS: BASO % 0.4 % (0.0-1.0); EOS % 0.2 % (0.0-3.0); HEMATOCRIT 34.9 % (36.0-47.0); LYMPH # 0.9 10^3/uL (1.5-5.0); LYMPH % 18.1 % (24.0-44.0); MEAN CORPUSCULAR HEMOGLOBIN 34.5 pg (27.0-33.0); MEAN CORPUSCULAR HGB CONC 31.5 g/dl (32.0-36.5); MEAN CORPUSCULAR VOLUME 109.4 fl (80.0-96.0); MONO # 0.2 10^3/uL (0.0-0.8); MONO % 4.4 % (2.0-8.0); NEUTROPHILS # 3.8 10^3/uL (1.5-8.5); NEUTROPHILS % 76.5 % (36.0-66.0); PLATELET COUNT, AUTOMATED 206 10^3/uL (150-450); RED BLOOD COUNT 3.19 10^6/uL (4.00-5.40)
[2023-09-12 10:22] VITALS: BP 97/63; O2SAT 98
[2023-09-12 10:35] LABS: ALBUMIN 3.2 G/DL (3.2-5.2); BILIRUBIN,TOTAL 0.5 MG/DL (0.3-1.2); CALCIUM LEVEL 9.8 MG/DL (8.3-10.6); CREATININE FOR GFR 1.88 MG/DL (0.55-1.30); GLOMERULAR FILTRATION RATE 27.8 (>39); POTASSIUM SERUM 4.2 MMOL/L (3.5-5.1); TOTAL PROTEIN 6.4 G/DL (5.7-8.2)
[2023-10-27 10:55] VITALS: BP 104/64; O2SAT 99
[2023-10-27 11:19] LABS: BASO # 0.1 10^3/uL (0.0-0.2); BASO % 1.3 % (0.0-1.0); EOS # 0.1 10^3/uL (0.0-0.5); EOS % 1.3 % (0.0-3.0); HEMATOCRIT 33.7 % (36.0-47.0); HEMOGLOBIN 10.7 g/dl (12.0-15.5); LYMPH # 0.6 10^3/uL (1.5-5.0); LYMPH % 16.1 % (24.0-44.0); MEAN CORPUSCULAR HEMOGLOBIN 35.8 pg (27.0-33.0); MEAN CORPUSCULAR HGB CONC 31.8 g/dl (32.0-36.5); MEAN CORPUSCULAR VOLUME 112.7 fl (80.0-96.0); MONO # 0.1 10^3/uL (0.0-0.8); MONO % 3.6 % (2.0-8.0); NEUTROPHILS % 77.2 % (36.0-66.0); PLATELET COUNT, AUTOMATED 170 10^3/uL (150-450); RED BLOOD COUNT 2.99 10^6/uL (4.00-5.40); WHITE BLOOD COUNT 3.9 10^3/uL (4.0-10.0)
[2023-10-27 11:46] LABS: ALBUMIN 2.6 G/DL (3.2-5.2); BILIRUBIN,TOTAL 0.4 MG/DL (0.3-1.2); CREATININE FOR GFR 1.56 MG/DL (0.55-1.30); GLOMERULAR FILTRATION RATE 34.4 (>39); POTASSIUM SERUM 4.3 MMOL/L (3.5-5.1); TOTAL PROTEIN 5.4 G/DL (5.7-8.2)
[2023-10-27] MEDS: DENOSUMAB 60MG/1ML SYRINGE (PROLIA) SC SCH (12:10)
[2024-03-28 10:59] VITALS: BP 90/56; O2SAT 97
[2024-03-28 11:12] LABS: BASO # 0.1 10^3/uL (0.0-0.2); BASO % 1.7 % (0.0-1.0); EOS # 0.1 10^3/uL (0.0-0.5); HEMATOCRIT 34.5 % (36.0-47.0); LYMPH # 0.9 10^3/uL (1.5-5.0); LYMPH % 25.4 % (24.0-44.0); MEAN CORPUSCULAR HEMOGLOBIN 36.2 pg (27.0-33.0); MEAN CORPUSCULAR HGB CONC 31.9 g/dl (32.0-36.5); MEAN CORPUSCULAR VOLUME 113.5 fl (80.0-96.0); MONO # 0.2 10^3/uL (0.0-0.8); MONO % 6.5 % (2.0-8.0); NEUTROPHILS # 2.3 10^3/uL (1.5-8.5); NEUTROPHILS % 63.6 % (36.0-66.0); PLATELET COUNT, AUTOMATED 171 10^3/uL (150-450); RED BLOOD COUNT 3.04 10^6/uL (4.00-5.40); WHITE BLOOD COUNT 3.6 10^3/uL (4.0-10.0)
[2024-03-28 11:38] LABS: ALBUMIN 3.2 G/DL (3.2-5.2); BILIRUBIN,TOTAL 0.5 MG/DL (0.3-1.2); CALCIUM LEVEL 10.3 MG/DL (8.3-10.6); CREATININE FOR GFR 2.01 MG/DL (0.55-1.30); GLOMERULAR FILTRATION RATE 25.6 (>39); POTASSIUM SERUM 4.1 MMOL/L (3.5-5.1); TOTAL PROTEIN 6.3 G/DL (5.7-8.2)
[2024-03-28 12:17] LABS: CA15-3 ANTIGEN 39.4 U/ML (<32.4)
[2024-04-16 10:46] VITALS: BP 123/70; O2SAT 100
[2024-04-24 11:59] LABS: ALBUMIN 2.8 G/DL (3.2-5.2); BILIRUBIN,TOTAL 0.4 MG/DL (0.3-1.2); CALCIUM LEVEL 9.2 MG/DL (8.3-10.6); CREATININE FOR GFR 1.57 MG/DL (0.55-1.30); GLOMERULAR FILTRATION RATE 34.1 (>39); POTASSIUM SERUM 4.9 MMOL/L (3.5-5.1); TOTAL PROTEIN 5.7 G/DL (5.7-8.2)
[2024-04-24] MEDS: DENOSUMAB 60MG/1ML SYRINGE (PROLIA) SC SCH (12:25)
[2024-05-14 11:57] LABS: BASO # 0.1 10^3/uL (0.0-0.2); BASO % 1.8 % (0.0-1.0); EOS # 0.1 10^3/uL (0.0-0.5); EOS % 2.5 % (0.0-3.0); HEMOGLOBIN 10.8 g/dl (12.0-15.5); LYMPH # 0.8 10^3/uL (1.5-5.0); LYMPH % 23.9 % (24.0-44.0); MEAN CORPUSCULAR HEMOGLOBIN 37.1 pg (27.0-33.0); MEAN CORPUSCULAR HGB CONC 31.8 g/dl (32.0-36.5); MONO # 0.2 10^3/uL (0.0-0.8); MONO % 6.7 % (2.0-8.0); NEUTROPHILS # 2.1 10^3/uL (1.5-8.5); NEUTROPHILS % 64.5 % (36.0-66.0); PLATELET COUNT, AUTOMATED 153 10^3/uL (150-450); RED BLOOD COUNT 2.91 10^6/uL (4.00-5.40); WHITE BLOOD COUNT 3.3 10^3/uL (4.0-10.0)
[2024-05-14 12:06] LABS: MEAN CORPUSCULAR VOLUME 116.8 fl (80.0-96.0)
[2024-05-14 13:33] LABS: BILIRUBIN,TOTAL 0.5 MG/DL (0.3-1.2); CALCIUM LEVEL 9.6 MG/DL (8.3-10.6); CREATININE FOR GFR 1.57 MG/DL (0.55-1.30); GLOMERULAR FILTRATION RATE 34.1 (>39); POTASSIUM SERUM 5.2 MMOL/L (3.5-5.1); TOTAL PROTEIN 5.9 G/DL (5.7-8.2)
[2024-05-17 13:08] VITALS: BP 119/61; O2SAT 97
[2024-05-17 14:55] LABS: FREE T4 0.89 NG/DL (0.89-1.76); THYROID STIMULATING HORMONE 0.933 uIU/ML (0.55-4.78)
[2024-05-17 14:56] LABS: MAGNESIUM LEVEL 1.9 MG/DL (1.8-2.4)
[2024-05-28 10:55] LABS: BASO # 0.1 10^3/uL (0.0-0.2); BASO % 1.7 % (0.0-1.0); EOS # 0.1 10^3/uL (0.0-0.5); EOS % 2.6 % (0.0-3.0); HEMATOCRIT 34.8 % (36.0-47.0); HEMOGLOBIN 11.4 g/dl (12.0-15.5); LYMPH # 0.9 10^3/uL (1.5-5.0); LYMPH % 24.6 % (24.0-44.0); MEAN CORPUSCULAR HEMOGLOBIN 37.7 pg (27.0-33.0); MEAN CORPUSCULAR HGB CONC 32.8 g/dl (32.0-36.5); MONO # 0.3 10^3/uL (0.0-0.8); MONO % 9.5 % (2.0-8.0); NEUTROPHILS # 2.1 10^3/uL (1.5-8.5); NEUTROPHILS % 60.7 % (36.0-66.0); PLATELET COUNT, AUTOMATED 140 10^3/uL (150-450); RED BLOOD COUNT 3.02 10^6/uL (4.00-5.40); WHITE BLOOD COUNT 3.5 10^3/uL (4.0-10.0)
[2024-05-28 11:04] LABS: MEAN CORPUSCULAR VOLUME 115.2 fl (80.0-96.0)
[2024-05-28 11:26] LABS: ALBUMIN 3.1 G/DL (3.2-5.2); BILIRUBIN,TOTAL 0.5 MG/DL (0.3-1.2); CALCIUM LEVEL 9.3 MG/DL (8.3-10.6); CREATININE FOR GFR 1.37 MG/DL (0.55-1.30); GLOMERULAR FILTRATION RATE 39.9 (>39); POTASSIUM SERUM 4.3 MMOL/L (3.5-5.1); TOTAL PROTEIN 6.1 G/DL (5.7-8.2)
[2024-05-28 11:40] LABS: FREE T4 1.05 NG/DL (0.89-1.76); THYROID STIMULATING HORMONE 0.633 uIU/ML (0.55-4.78)
[2024-05-28 11:42] LABS: FREE T3 2.8 PG/ML (2.3-4.2)
[~2024-06-04] VITALS: Ht 162.6 cm; Wt 69.6 kg
[~2024-06-04 08:53] MED LIST changes: +GABA-1490 PO; -GABA600T4 PO; +NS 500 ML IV ONE; +SODIUM CHLORIDE 0.9% INJ 10 ML SYR IV PRN
[2024-06-04 09:05] VITALS: BP 119/61; O2SAT 97
== END 2024-10-20 | disposition expired ==
LOC: M ONCM 08:53
PROVIDERS: ATTEND Internal Medicine Medical Oncology
DX: C50.911 Malignant neoplasm of unspecified site of right female breast (principal); C77.3 Secondary and unspecified malignant neoplasm of axilla and upper limb lymph nodes; D50.9 Iron deficiency anemia, unspecified; M10.9 Gout, unspecified; I44.7 Left bundle-branch block, unspecified; I12.9 Hypertensive chronic kidney disease with stage 1 through stage 4 chronic kidney disease, or unspecified chronic kidney disease; N18.9 Chronic kidney disease, unspecified; E55.9 Vitamin D deficiency, unspecified; Z79.811 Long term (current) use of aromatase inhibitors; Z79.82 Long term (current) use of aspirin; Z79.899 Other long term (current) drug therapy; T38.5X5A Adverse effect of other estrogens and progestogens, initial encounter; L60.9 Nail disorder, unspecified; R22.31 Localized swelling, mass and lump, right upper limb; R19.7 Diarrhea, unspecified
CPT/HCPCS: 36415; 80053; 81001; 82607; 82728; 82746; 83520; 83550; 83615; 83735; 84439; 84443; 84481; 85025; 86300; 93971; 96372; G0463; J0897